=== PATIENT | female | born 1935 | race Caucasian/White ===

== ENCOUNTER 2018-02-17 06:54 | Emergency (ER) | payer OTHER, MEDICAID ==
[2018-02-17] MEDS ORDERED: Haloperidol Lactate 5 mg/mL 1mL Vial IM STA (06:57)
[2018-02-17] MEDS ORDERED: Haloperidol Lactate 5 mg/mL 1mL Vial ONE (07:02)
--- NOTE | 2018-02-17 07:23 | ED Physician Chart ---
ED Chief Complaint/HPI - Patient Information Date Seen:: 02/17/18 Time Seen:: 07:10 Chief Complaint:: cough History of Present Illness:: THIS IS AN 82 YO FEMALE SENT FROM THE [facility] FOR EVALUATION AND TREATMENT OF HER CHEST CONGESTION AND COUGH. SHE IS A PSYCHOTIC PATIENT THAT IS COMBATIVE AND UNCOOPERATIVE. SHE IS A NO CODE PATIENT WITH ALZHEIMER AND A DEPRESSIVE DISORDER. Allergies:: Allergies Allergy/AdvReac Type Severity Reaction Status Date / Time Penicillins Allergy Verified 02/17/18 06:57 potassium chloride Allergy Verified 02/17/18 06:57 Vitals:: Vital Signs - 8 hr 02/17/18 06:58 Temp 97.9 F HR 73 RR 18 BP 122/67 O2 Sat % 96 Historian:: Medical Records Review:: Nurse's Note Reviewed, Old Chart Reviewed, Transfer documents Reviewed ED Review of Systems - Review of Systems General/Constitutional: Other (THIS PATIENT IS UNABLE TO GIVE A REVIEW OF SYSTEMS.) Skin: No skin lesions, No rash, No bruising Head: No headache, No light-headedness Eyes: No loss of vision, No pain, No diplopia ENT: No earache, No nasal drainage, No sore throat, No tinnitus Neck: No neck pain, No swelling, No thyromegaly, No stiffness, No mass noted Cardio Vascular: No chest pain, No palpitations, No PND, No orthopnea, No edema Pulmonary: No SOB, No cough, No sputum, No wheezing GI: No nausea, No vomiting, No diarrhea, No pain, No melena, No hematochezia, No constipation, No hematemesis G/U: No dysuria, No frequency, No hematuria Musculoskeletal: No bone or joint pain, No back pain, No muscle pain Endocrine: No polyuria, No polydipsia Psychiatric: Prior psych history, Depression, Anxiety, No suicidal ideation Hematopoietic: No bruising, No lymphadenopathy Allergic/Immuno: No urticaria, No angioedema Neurological: No syncope, No focal symptoms, No weakness, No paresthesia, No headache, No seizure, No dizziness, No confusion, No vertigo ED Past Medical History - Past Medical History Obtainable: Yes Past Medical History: Dyslipidemia, Dementia Family History: None Social History: Non Smoker, No Alcohol, No Drug Use, Care Facility Surgical History: other Family Medical History - Family Member Mother History Unknown: Yes ED Physical Exam - Physical Examination General/Constitutional: Awake, Well-developed, well-nourished, Alert, No distress, GCS 15, Non-toxic appearing, Ambulatory Other Gen/Cons comments:: THIS PATIENT IS COMBATIVE AND SCRATCHING NOT ALLOWING ANYONE TO GET TEST DONE. Head: Atraumatic Eyes: Lids, conjuctiva normal, PERRL, EOMI Skin: Nl inspection, No rash, No skin lesions, No ecchymosis, Well hydrated, No lymphadenopathy ENMT: External ears, nose nl, Nasal exam nl, Lips, teeth, gums nl Neck: Nontender, Full ROM w/o pain, No JVD, No nuchal rigidity, No bruit, No mass, No stridor Respiratory: Nl effort/Exclusion, Clear to Auscultation, No Wheeze/Rhonchi/ Rales (THERE ARE BILATERAL WHEEZES AND RHONCHI HEARD.) Cardio Vascular: RRR, No murmur, gallop, rubs, NL S1 S2 GI: No tenderness/rebounding/guarding, No organomegaly, No hernia, Normal BS's, Nondistended, No mass/bruits, No McBurney tenderness : No CVA tenderness Extremities: No tenderness or effusion, Full ROM, normal strength in all extremities, No edema, Normal digits & nails Neuro/Psych: Alert/oriented, DTR's symmetric, Normal sensory exam, Normal motor strength, Judgement/insight normal, Mood normal (DEPRESSIVE MOOD AND COMBATIVE INTERMITTENTLY), Normal gait, No focal deficits Misc: Normal back, No paraspinal tenderness ED Labs/Radiology/EKG Results - Lab Results Results: Laboratory Results WBC 8.7 Th/cmm (4.8-10.8) 02/17/18 08:40 RBC 4.19 Mil/cmm (3.80-5.20) 02/17/18 08:40 Hgb 11.3 gm/dL (12-16) L 02/17/18 08:40 Hct 34.4 % (41.0-60) L 02/17/18 08:40 MCV 82.2 fl (81-100) 02/17/18 08:40 MCH 27.0 pg (27.0-31.0) 02/17/18 08:40 MCHC Differential 32.9 pg (28.0-36.0) 02/17/18 08:40 RDW 14.2 % (11.5-20.0) 02/17/18 08:40 Plt Count 628 Th/cmm (150-400) H 02/17/18 08:40 MPV 6.1 fl 02/17/18 08:40 Neutrophils % 72.3 % (40.0-80.0) 02/17/18 08:40 Lymphocytes % 11.4 % (20.0-50.0) L 02/17/18 08:40 Monocytes % 8.4 % (2.0-10.0) 02/17/18 08:40 Eosinophils % 7.4 % (0.0-5.0) H 02/17/18 08:40 Basophils % 0.5 % (0.0-2.0) 02/17/18 08:40 PT 10.2 SECONDS (9.5-11.5) 02/17/18 08:40 INR 0.98 (0.5-1.4) 02/17/18 08:40 Sodium 135 mEq/L (136-145) L 02/17/18 08:40 Potassium 3.5 mEq/L (3.5-5.1) 02/17/18 08:40 Chloride 102 mEq/L (98-107) 02/17/18 08:40 Carbon Dioxide 26.9 mEq/L (21.0-31.0) 02/17/18 08:40 Anion Gap 9.6 (7.0-16.0) 02/17/18 08:40 BUN 18 mg/dL (7-25) 02/17/18 08:40 Creatinine 0.9 mg/dL (0.6-1.2) 02/17/18 08:40 Est GFR ( Amer) TNP 02/17/18 08:40 Est GFR (Non-Af Amer) TNP 02/17/18 08:40 BUN/Creatinine Ratio 20.0 02/17/18 08:40 Glucose 95 mg/dL (70-105) 02/17/18 08:40 Calcium 9.0 mg/dL (8.6-10.3) 02/17/18 08:40 Total Bilirubin 0.3 mg/dL (0.3-1.0) 02/17/18 08:40 AST 10 U/L (13-39) L 02/17/18 08:40 ALT 4 U/L (7-52) L 02/17/18 08:40 Alkaline Phosphatase 77 U/L (34-104) 02/17/18 08:40 Troponin I < 0.01 ng/mL (0.01-0.05) L 02/17/18 08:40 Total Protein 6.3 gm/dL (6.0-8.3) 12 08:40 Albumin 3.0 gm/dL (3.7-5.3) L 02/17/18 08:40 Globulin 3.3 gm/dL 12 08:40 Albumin/Globulin Ratio 0.9 (1.0-1.8) L 02/17/18 08:40 Urine Source CLEAN C 02/17/18 09:18 Urine Color YELLOW 02/17/18 09:18 Urine Clarity CLOUDY (CLEAR) H 02/17/18 09:18 Urine pH 6.5 (4.6 - 8.0) 02/17/18 09:18 Ur Specific Malone >= 1.030 (1.005-1.030) 02/17/18 09:18 Urine Protein NEGATIVE mg/dL (NEGATIVE) 02/17/18 09:18 Urine Glucose (UA) NEGATIVE mg/dL (NEGATIVE) 02/17/18 09:18 Urine Ketones TRACE mg/dL (NEGATIVE) 02/17/18 09:18 Urine Blood NEGATIVE (NEGATIVE) 02/17/18 09:18 Urine Nitrate POSITIVE (NEGATIVE) H 02/17/18 09:18 Urine Bilirubin NEGATIVE (NEGATIVE) 02/17/18 09:18 Urine Urobilinogen 0.2 E.U./dL (0.2 - 1.0) 02/17/18 09:18 Ur Leukocyte Esterase TRACE (NEGATIVE) H 02/17/18 09:18 Urine RBC 0-2 /hpf (0-5) 02/17/18 09:18 Urine WBC 6-10 /hpf (0-5) H 02/17/18 09:18 Ur Epithelial Cells OCCASIONAL /lpf (FEW) 02/17/18 09:18 Urine Bacteria 4+ /hpf (NONE SEEN) H 02/17/18 09:18 - Radiology Results Results: 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 Is Septic Shock (SBP<90, OR Lactate>4 mmol\L) present?: No - <6hrs of presentation: Vital Signs: Vital Signs - 8 hr 02/17/18 06:58 Temp 97.9 F HR 73 RR 18 BP 122/67 O2 Sat % 96 ED Reassessment (Disposition) - Reassessment Reassessment Condition:: Improved - Diagnosis Diagnosis:: URINARY TRACT INFECTION PSYCHOSIS - Aftercare/Follow up Instructions Aftercare/Follow-Up Instructions:: Counseled pt regarding lab results/diagnosis & need follow up, Refer to Discharge Instructions, Counseled pt & family regarding lab results/diagnosis & need follow up Medication Prescribed:: Z-[id number] - Patient Disposition Discharge/Transfer:: [facility] Condition at Disposition:: Improved
[2018-02-17 08:47] LABS: % BASOPHILS 0.5 % (0.0-2.0); % EOSINOPHILS 7.4 % (0.0-5.0); % LYMPHOCYTES 11.4 % (20.0-50.0); % MONOCYTES 8.4 % (2.0-10.0); % NEUTROPHILS 72.3 % (40.0-80.0); EOSINOPHILE ABSOLUTE 0.6 Th/cmm (0.1-0.4); HEMATOCRIT 34.4 % (41.0-60); HEMOGLOBIN 11.3 gm/dL (12-16); MEAN CELL VOLUME 82.2 fl (81-100); MEAN CORPUSCULAR HGB CONC 32.9 pg (28.0-36.0); MEAN PLATELET VOLUME 6.1 fl; MONOCYTE ABSOLUTE 0.7 Th/cmm (0.3-1.0); NEUTROPHILE ABSOLUTE 6.4 Th/cmm (1.8-8.0); PLATELET COUNT 628 Th/cmm (150-400); RED BLOOD COUNT 4.19 Mil/cmm (3.80-5.20); RED CELL DISTRIBUTION WIDTH 14.2 % (11.5-20.0); WHITE BLOOD COUNT 8.7 Th/cmm (4.8-10.8)
[2018-02-17 09:00] LABS: INR 0.98 (0.5-1.4); PROTHROMBIN TIME (TEST) 10.2 SECONDS (9.5-11.5)
[2018-02-17 09:04] LABS: ALB/GLOB RATIO 0.9 (1.0-1.8); ALKALINE PHOSPHATASE 77 U/L (34-104); ANION GAP 9.6 (7.0-16.0); BILIRUBIN,TOTAL 0.3 mg/dL (0.3-1.0); BUN - UREA NITROGEN 18 mg/dL (7-25); CARBON DIOXIDE 26.9 mEq/L (21.0-31.0); CHLORIDE 102 mEq/L (98-107); CREATININE - SERUM 0.9 mg/dL (0.6-1.2); GLUCOSE 95 mg/dL (70-105); POTASSIUM SERUM 3.5 mEq/L (3.5-5.1); SGOT 10 U/L (13-39); SGPT/ALT 4 U/L (7-52); SODIUM SERUM 135 mEq/L (136-145); TOTAL PROTEIN,SERUM 6.3 gm/dL (6.0-8.3)
[2018-02-17 09:24] LABS: URINE SOURCE CLEAN C
[2018-02-17 09:29] LABS: URINE BILIRUBIN NEGATIVE (NEGATIVE); URINE BLOOD NEGATIVE (NEGATIVE); URINE GLUCOSE (UA) NEGATIVE (NEGATIVE); URINE KETONE TRACE mg/dL (NEGATIVE); URINE LEUKOCYTE ESTERASE TRACE (NEGATIVE); URINE MICROSCOPIC INDICATED? YES; URINE NITRATE POSITIVE (NEGATIVE); URINE PH 6.5 (4.6 - 8.0); URINE PROTEIN NEGATIVE (NEGATIVE); URINE UROBILINOGEN 0.2 E.U./dL (0.2 - 1.0)
[2018-02-17 09:36] LABS: URINE CLARITY CLOUDY (CLEAR); URINE COLOR YELLOW; URINE RBC 0-2 /hpf (0-5)
[2018-02-17 09:38] LABS: URINE BACTERIA 4+ /hpf (NONE SEEN); URINE EPITHELIAL CELLS OCCASIONAL /lpf (FEW)
--- NOTE | 2018-02-17 09:56 | Diagnostic Imaging Report ---
Exam: Portable chest x-ray HISTORY: Cough Findings: Portable examination of the chest upright at 0834 hours reviewed, no prior studies available comparison. The study demonstrates no active pulmonic infiltrates or effusions. COPD changes with interstitial fibrosis and scarring appreciated. Bony thorax remarkable for degenerative changes. IMPRESSION: COPD changes, interstitial scarring no acute disease.
== END 2018-02-17 11:08 ==
LOC: ER 06:54
DX: N39.0 Urinary tract infection, site not specified (principal); F29 Unspecified psychosis not due to a substance or known physiological condition; E78.5 Hyperlipidemia, unspecified; Z88.0 Allergy status to penicillin; Z88.8 Allergy status to other drugs, medicaments and biological substances
CPT/HCPCS: 99284; 96372 ×4; 71045; 84484; 36415; 84443; 85025; 85610; 87086; 81001; 80053; J2060; J0696; J2930; J1630; Z7502; Z7610